=== PATIENT | male | born 1950 | race Hispanic/Latino ===

== ENCOUNTER 2019-07-01 15:51 | Emergency (ER) | payer OTHER ==
[2019-07-01 16:46] LABS: BASOPHILS % (AUTO) 0.8 % (0.0-5.0); EOSINOPHILS % (AUTO) 5.1 % (0.0-8.0); HEMATOCRIT 43.9 % (42-54); LYMPHOCYTES % (AUTO) 43.3 % (21.0-51.0); MEAN CORPUSCULAR HEMOGLOBIN 34.3 pg (27.0-33.0); MEAN CORPUSCULAR HGB CONC 34.6 g/dL (32.0-36.0); MEAN CORPUSCULAR VOLUME 99.2 fL (79-99); MONOCYTES % (AUTO) 8.2 % (3.0-13.0); NEUTROPHILS % (AUTO) 42.6 % (40.0-77.0); PLATELET COUNT (AUTO) 169 K/uL (130-400); RED BLOOD CELL COUNT(AUTO) 4.42 MIL/uL (4.50-6.20); RED CELL DISTRIBUTION WIDTH 13.2 % (11.0-15.5); WHITE BLOOD COUNT (AUTO) 8.4 K/uL (4.8-10.8)
[2019-07-01 16:57] LABS: POTASSIUM 4.2 mmol/L (3.5-5.1)
[2019-07-01 16:58] LABS: INR 0.97 (0.85-1.15); PROTHROMBIN TIME 10.2 SEC (9.6-11.6)
[2019-07-01 17:04] LABS: ALBUMIN 3.8 g/dL (3.5-5.0); BILIRUBIN,TOTAL 0.6 mg/dL (0.2-1.0); TOTAL PROTEIN, SERUM 6.5 g/dL (6.0-8.3)
[2019-07-01 17:25] LABS: APPEARANCE,URINE Clear (CLEAR); BILIRUBIN,URINE Negative (NEGATIVE); COLOR,URINE Yellow (YELLOW); GLUCOSE, URINE (UA) Negative (NEGATIVE); KETONES,URINE Negative (NEGATIVE); LEUKOCYTE ESTERASE ,URINE Trace (NEGATIVE); NITRATE,URINE Negative (NEGATIVE); OCCULT BLOOD,URINE Negative (NEGATIVE); PROTEIN,URINE Negative (NEGATIVE)
[2019-07-01 17:52] LABS: RBC,URINE 0-1 /HPF (0-1)
[2019-07-01 17:53] LABS: BACTERIA,URINE Rare /HPF (None Seen)
[2019-07-01 17:54] LABS: MUCUS,URINE Rare LPF (None Seen); SQUAMOUS EPITHELIAL CELL,UR Few /HPF (0-2)
[2019-07-01] MEDS ORDERED: IOHEXOL-350 75 ML VIAL IV ONE ×2 (18:12→19:59)
== END 2019-07-01 20:59 | disposition home or self-care (01) ==
LOC: EDH 15:51
DX: K59.00 Constipation, unspecified (principal); K62.5 Hemorrhage of anus and rectum; I10 Essential (primary) hypertension; F32.9 Major depressive disorder, single episode, unspecified; E78.00 Pure hypercholesterolemia, unspecified; F43.10 Post-traumatic stress disorder, unspecified; Z87.891 Personal history of nicotine dependence
CPT/HCPCS: 36415; 74177; 80053; 81001; 82270; 83690; 85025; 85610; 85730; 99285; Q9967

== ENCOUNTER → 2023-08-10 | Outpatient (CLI) | payer OTHER | END | disposition home or self-care (01) | LOC: RAH 13:55 | PROVIDERS: ATTEND Pain Medicine Interventional Pain Medicine | DX: M47.816 Spondylosis without myelopathy or radiculopathy, lumbar region (principal); M54.50 Low back pain, unspecified; M51.36 Other intervertebral disc degeneration, lumbar region | CPT/HCPCS: 72148 ==

== ENCOUNTER → 2024-09-04 | Outpatient (CLI) | payer OTHER ==
--- NOTE | 2024-09-04 10:29 | HMCIMG ---
FINDINGS: There are no comparison exams. Routine upper GI exam was performed. The patient was given effervescent crystals in order to distend the esophagus and stomach. The patient swallowed barium and multiple images of the esophagus and stomach were obtained in various projections. The esophagus distends normally, without any persistent stricturing or narrowing. There is normal esophageal peristalsis and emptying. The gastroesophageal junction is preserved. There is no evidence of esophagitis. No mucosal abnormality seen. No gastroesophageal reflux was seen. No hiatal hernia was demonstrated. The stomach distends well. No mucosal abnormalities are seen to suggest ulcer or cancer. No gastritis is evident. There is no extravasation. There is no evidence of gastric outlet obstruction. The duodenum is normal in appearance. There is no evidence of inflammatory change to suggest peptic ulcer disease. IMPRESSION: Normal examination. No gastroesophageal reflux seen.
== END | disposition home or self-care (01) ==
LOC: RAH 09:32
PROVIDERS: ATTEND Internal Medicine Gastroenterology
DX: R19.06 Epigastric swelling, mass or lump (principal)
CPT/HCPCS: 74240

== ENCOUNTER → 2025-07-15 | Outpatient (CLI) | payer OTHER ==
--- NOTE | 2025-07-16 02:35 | HMCIMG ---
EXAM: MR Thoracic Spine without Intravenous Contrast Clinical History: Other abnormalities of gait and mobility. Technique: Multiplanar and multisequence MR images of the thoracic spine were obtained without intravenous contrast. Comparison: No prior studies available for comparison. Findings: Vertebrae and Alignment: No acute fracture is identified. Anterior and posterior marginal osteophytes are present throughout the thoracic spine with minimal Modic type II endplate changes. Normal thoracic kyphosis is preserved without scoliosis. There is grade I anterolisthesis at the T1T2 and T2T3 levels without spondylolysis. Postsurgical changes are present with bilateral laminectomy at the T10 and T11 levels. T1T2 Level: Disc desiccation is present. Severe bilateral facet arthropathy with associated costotransverse and costovertebral osteoarthritic changes results in bilateral neural foraminal stenosis. No significant central canal stenosis is identified. T2T3 Level: Disc desiccation is present without focal disc protrusion. No significant spinal canal or neural foraminal narrowing is identified. T3T4 Level: Disc desiccation is present with moderate bilateral facet arthropathy. No significant spinal canal or neural foraminal stenosis is identified. T4T5 Level: Disc desiccation is present with mild bilateral facet arthropathy. The spinal canal and neural foramina are patent. T5T6 Level: Disc desiccation is present without disc protrusion, spinal canal stenosis, or neural foraminal narrowing. T6T7 Level: A small central disc protrusion is present, causing indentation of the thecal sac and minimal neural foraminal narrowing without exiting nerve root compression. T7T8 Level: Disc desiccation is present without focal disc protrusion or significant spinal canal or neural foraminal narrowing. T8T9 Level: Disc desiccation is present without focal disc protrusion or significant spinal canal or neural foraminal narrowing. T9T10 Level: Disc desiccation is present with moderate bilateral facet arthropathy and ligamentum flavum thickening, resulting in mild spinal canal narrowing. T10T11 Level: Central and bilateral paracentral disc protrusions are present, causing grade I spinal canal and bilateral neural foraminal narrowing. Postsurgical changes from prior laminectomy are noted. T11T12 Level: Central and bilateral paracentral disc protrusions are present, resulting in grade I spinal canal and bilateral neural foraminal narrowing. T12L1 Level: A central disc protrusion is present, producing grade I spinal canal and bilateral neural foraminal narrowing. Spinal Cord: At the T10T11 level, there is focal thinning of the spinal cord with associated T2 hyperintensity, consistent with myelomalacia. The remainder of the thoracic spinal cord demonstrates normal signal and caliber. The conus medullaris is normal in position and signal. Paraspinal Soft Tissues: Postsurgical scarring is present in the paraspinal soft tissues and operative bed. Edema is noted in the paraspinal musculature and subcutaneous tissues at the T10 and T11 levels. A focal collection is present at the level of the T10 vertebral body in the left paramedian region, measuring approximately 0.5 0.7 1.7 cm, without definite visualization of a focal dural defect. 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 * Postsurgical changes status post bilateral laminectomy at T10 and T11 with associated paraspinal scarring, edema, and a small focal collection at the T10 level without definite dural breach. Further evaluation with contrast is recommended to assess. * Multilevel thoracic spondylosis with disc desiccation and disc protrusions causing grade I spinal canal and bilateral neural foraminal narrowing at T6T7, T10T11, T11T12, and T12L1. * Multilevel facet arthropathy, severe at T1T2, moderate at T3T4 and T9T10, and mild at T4T5. * Grade I anterolisthesis at the T1T2 and T2T3 levels without spondylolysis. /[place]
--- NOTE | 2025-07-16 02:50 | HMCIMG ---
EXAM: MR LUMBAR SPINE WITHOUT IV CONTRAST CLINICAL HISTORY: Other abnormalities of gait and mobility. TECHNIQUE: Multiplanar and multisequence MR images of the lumbar spine obtained without IV contrast. CONTRAST: NONE COMPARISON: None. FINDINGS: VERTEBRAE: Vertebral body heights are preserved. There are anterior and posterior marginal osteophytes. Modic type II endplate changes are present at multiple levels in the lumbar spine. VERTEBRAL ALIGNMENT: There is grade I anterolisthesis of L4 over L5. There is mild retrolisthesis of L3 over L4. There is minimal retrolisthesis of L5 over S1. The lumbar lordosis is reduced. There is minimal levoscoliosis of the lumbar spine with apex at the L3 level and Enrique angle measuring 4 degrees. AXIAL LEVELS DEMONSTRATE: Diffuse disc desiccative changes at all levels with multilevel reduction of disc height. No clumping of the cauda equina nerve roots. T12/L1: Small central and bilateral paracentral disc protrusion causes grade I central canal narrowing. Moderate bilateral facet arthropathy with minimal narrowing of the spinal canal. No nerve root impingement. L1/2: Central and bilateral paracentral disc extrusion causing thecal sac indentation and grade II central canal narrowing. Bilateral lateral recess narrowing, grade I, right greater than left. Grade II/III bilateral neural foraminal narrowing, right greater than left, with resultant bilateral exiting L1 and traversing right L2 nerve root impingement. Mild to moderate bilateral ligamentum flavum thickening and facet arthropathy. L2/3: Circumferential diffuse disc bulge of moderate size, compounded by ligamentum flavum thickening and facet arthropathy, causing spinal canal, lateral recess, and neural foraminal stenosis with bilateral exiting L2 nerve root compression. L3/4: Small central disc extrusion causing thecal sac indentation. Moderate bilateral ligamentum flavum thickening and facet arthropathy causing grade III neural foraminal narrowing, with impingement upon the bilateral exiting L3 nerve roots, left greater than right. L4/5: Severe bilateral ligamentum flavum thickening and facet arthropathy. Bilateral lateral recess and neural foraminal narrowing, grade II/III, causing bilateral exiting L4 nerve root impingement. L5/S1: Severe bilateral facet arthropathy. Small central and bilateral paracentral and foraminal disc protrusions causing thecal sac indentation, lateral recess narrowing, and bilateral neural foraminal narrowing with bilateral exiting L5 nerve root impingement, left greater than right. CORD: Normal position and signal intensity of the conus medullaris. SOFT TISSUES: Evidence of prior laminectomy at the L2, L3, and L4 levels with overlying paraspinal muscle edema and scarring extending to the subcutaneous regions at the operative levels. Small posterior collection at the operative level measuring approximately 0.8 x 1.1 x 9 cm, without definite evidence to suggest dural breach. IMPRESSION: 1. Multilevel neural foraminal narrowing with bilateral exiting L1, L2, L3, L4, L5 nerve roots impingement. 2. Grade II central canal narrowing at L1-L2 level. 3. Prior laminectomy at L2, L3, L4 levels with overlying paraspinal muscle edema and scarring, extending to the subcutaneous regions at the operative levels. 4. Small collection is present at the operative level posteriorly, measuring approximately 0.8 x 1.1 x 9 cm, without definite evidence to suggest dural breach. Likely seromas. 5. Degenerative changes including anterior and posterior marginal osteophytes, Modic type II endplate changes, diffuse disc desiccation with multilevel disc height loss, mild retrolisthesis at L3-L4 and L5-S1, grade I anterolisthesis of L4 over L5, and mild levoscoliosis with a Enrique angle of 4 degrees. 6. Facet arthropathy and ligamentum flavum thickening at multiple levels contributing to spinal canal, lateral recess, and neural foraminal stenosis. /[place]
== END | disposition home or self-care (01) ==
LOC: RAH 13:44
PROVIDERS: ATTEND Neurological Surgery
DX: M47.817 Spondylosis without myelopathy or radiculopathy, lumbosacral region (principal); M48.07 Spinal stenosis, lumbosacral region; M51.27 Other intervertebral disc displacement, lumbosacral region; M25.78 Osteophyte, vertebrae; G95.19 Other vascular myelopathies; G95.89 Other specified diseases of spinal cord; M43.14 Spondylolisthesis, thoracic region; M51.24 Other intervertebral disc displacement, thoracic region; M43.17 Spondylolisthesis, lumbosacral region; M48.04 Spinal stenosis, thoracic region; M47.814 Spondylosis without myelopathy or radiculopathy, thoracic region; M41.86 Other forms of scoliosis, lumbar region; R26.89 Other abnormalities of gait and mobility; R29.2 Abnormal reflex; R53.1 Weakness; Z98.890 Other specified postprocedural states
CPT/HCPCS: 72146; 72148